=== PATIENT | female | born 1970 ===

== ENCOUNTER 2020-10-10 07:51 | Inpatient (IN) | payer OTHER ==
[~2020-10-10 07:51] MED LIST: Dexamethasone 4 MG/ML SDV ONE; Glycopyrrolate 0.2 MG/ML 5 ML MDV ONE; Lactated Ringers 1,000 ML ONE; Neostigmine Methylsulfate 1 MG/ML 5 ML Syringe ONE; Ondansetron 4 MG/2 ML SDV ONE; Propofol 200 MG/20 ML SDV ONE; Rocuronium 50 MG/5 ML Vial ONE; Succinylcholine 200 MG/10 ML MDV ONE; cefOXitin 2 GM Vial ONE; fentaNYL 250 MCG/5 ML SDV ONE
[2020-10-10] MEDS ORDERED: Acetaminophen 500 MG Tab PO ONE (08:15)
[2020-10-10] MEDS ORDERED: Gabapentin 300 MG Cap PO ONE (08:15)
[2020-10-10] MEDS ORDERED: cefOXitin 2 GM in Sodium Chloride 0.9% 50 ML IV ONE (08:15)
[2020-10-10] MEDS ORDERED: Dextrose 5%-Lactated Ringers 1,000 ML IV SCH (08:15)
[2020-10-10] MEDS ORDERED: Scopolamine 1.5 MG Transdermal Patch TOP SCH (08:15)
[2020-10-10] MEDS ORDERED: Celecoxib 200 MG Cap PO ONE (08:30)
[2020-10-10] MEDS ORDERED: Magnesium Sulfate 3 GM in Sodium Chloride 0.9% 100 ML IV SCH (09:45)
[2020-10-10] MEDS ORDERED: Ketamine 50 MG in Sodium Chloride 0.9% 49.5 ML IV SCH (09:45)
[2020-10-10] MEDS ORDERED: Ketamine 500 MG/5 ML MDV IV SCH (09:45)
[2020-10-10] MEDS: Magnesium Sulfate/Water 2 GM/50 ML BAG IV SCH ×2 (10:36→13:46)
[2020-10-10] MEDS ORDERED: fentaNYL 250 MCG/5 ML SDV ONE (10:44)
[2020-10-10] MEDS ORDERED: hydrOXYzine HCL 100 MG/2 ML SDV IM ONE (12:10)
[2020-10-10] MEDS ORDERED: Cyclobenzaprine 10 MG Tab PO PRN (13:25)
[2020-10-10] MEDS ORDERED: HYDROmorphone 0.5 MG/0.5 ML Syringe IVPUSH PRN (14:00)
[2020-10-10] MEDS ORDERED: Acetaminophen 500 MG Tab PO SCH (14:00)
[2020-10-10] MEDS ORDERED: HYDROmorphone 1 MG/ML Syringe IV PRN (14:00)
[2020-10-10] MEDS ORDERED: Ondansetron 4 MG/2 ML SDV IVPUSH PRN (14:00)
[2020-10-10] MEDS ORDERED: Calcium Gluconate 10% 1 GM/10 ML SDV IVPUSH PRN (14:00)
[2020-10-10] MEDS ORDERED: Metoclopramide 10 MG/2 ML SDV IVPUSH PRN (14:00)
[2020-10-10] MEDS ORDERED: Labetalol 20 MG/4 ML Syringe IVPUSH PRN (14:00)
[2020-10-10] MEDS ORDERED: Acetaminophen 500 MG Tab PO PRN (14:00)
[2020-10-10] MEDS ORDERED: diphenhydrAMINE 50 MG/ML SDV IVPUSH PRN (14:00)
[2020-10-10] MEDS ORDERED: traMADol 50 MG Tab PO PRN (14:00)
[2020-10-10] MEDS: hydrOXYzine HCL 100 MG/2 ML SDV IM PRN (15:32)
[2020-10-10] MEDS ORDERED: MVI, Adult with Vitamin K 10 ML, Thiamine 200 MG, Zinc/Copper/Manganese/Selenium 1 ML i... IV SCH ×4 (16:00)
[2020-10-10] MEDS ORDERED: Pantoprazole 40 MG Vial IVPUSH SCH (16:00)
[2020-10-10] MEDS: cefOXitin 2 GM in Sodium Chloride 0.9% 50 ML IV SCH ×3 (16:14→22:58)
[2020-10-10] MEDS: Heparin Sodium 5,000 Units/ML Vial SUBCUT SCH (17:52)
[2020-10-10] MEDS: Acetaminophen 500 MG Tab PO SCH (17:52)
[2020-10-10] MEDS: oxyCODONE 5 MG Tab PO PRN (18:17)
[2020-10-10] MEDS: Gabapentin 300 MG Cap PO SCH (20:45)
[2020-10-10] MEDS: ClonazePAM 1 MG Tab PO SCH (20:49)
[2020-10-10] MEDS: Dextrose 5%-Lactated Ringers 1,000 ML IV SCH (22:59)
[2020-10-11] MEDS ORDERED: SUMAtriptan 50 MG Tab PO PRN (01:34)
[2020-10-11] MEDS: oxyCODONE 5 MG Tab PO PRN (01:43)
[2020-10-11] MEDS: Acetaminophen 500 MG Tab PO SCH ×3 (01:43→17:45)
[2020-10-11] MEDS ORDERED: Iopamidol 612 MG/ML 50 ML SDV PO STA (03:27)
[2020-10-11] MEDS: cefOXitin 2 GM in Sodium Chloride 0.9% 50 ML IV SCH ×3 (04:51→15:05)
[2020-10-11] MEDS: Dextrose 5%-Lactated Ringers 1,000 ML IV SCH (04:52)
[2020-10-11] MEDS: Heparin Sodium 5,000 Units/ML Vial SUBCUT SCH ×2 (06:00→17:45)
[2020-10-11] MEDS ORDERED: Ondansetron 4 MG Tab.DIS PO PRN (07:21)
[2020-10-11] MEDS ORDERED: Dextrose 5%-Lactated Ringers 1,000 ML IV SCH (07:30)
--- NOTE | 2020-10-11 08:26 | PN ---
DATE OF SERVICE: 10/11/2020 SUBJECTIVE: Manda is postop day #1 following a gastric bypass surgery. Her upper GI this morning was normal. Vital signs have been stable. She has been up, ambulating. Oral intake 990. Urine output 1500. GARY drain put out 70 mL of a serosanguineous drainage. The patient states after surgery, she cannot feel her bladder and has had 2 large incontinent voids. REVIEW OF SYSTEMS: Remainder of review of systems negative for any pertinent positives and negatives. OBJECTIVE: GENERAL: Manda Rey is a pleasant 50-year-old female. She is alert, orientated. Sitting up in the chair. VITAL SIGNS: TPR is 96.5, 76, 18, blood pressure 122/73. HEENT: Negative. NECK: Supple. HEART: Regular rate and rhythm. LUNGS: Clear. ABDOMEN: Dressings dry and intact. Abdominal binder is on and GARY drain as above. EXTREMITIES: Without peripheral edema. ASSESSMENT: 1. Laparoscopic Debbie-en-Y gastric bypass surgery. 2. Liver biopsy. 3. Repair of large paraesophageal hernia. 4. Mediastinal lipoma. Date of procedure: 10/10/2020. POSTOPERATIVE DIAGNOSES: Morbid obesity, hepatomegaly, large paraesophageal diaphragmatic hernia, and mediastinal lipoma. PLAN: 1. Decrease IV rate to 100 mL per hour. 2. Dressing off, may shower. 3. Communication order: Three med cups per hour, 1 every 20 minutes. 4. Atarax 50 mg q.4 hours p.r.n. pain. 5. Energy protocol discussed with the patient. 6. Continue use of incentive spirometer 10 times every hour while awake and ambulate 6 times daily. 7. We will evaluate p.r.n. or in a.m. 8. We will continue to evaluate bladder. Essie Sparrow PA-C /[id number]
[2020-10-11] MEDS: Gabapentin 300 MG Cap PO SCH ×2 (08:28→20:02)
[2020-10-11] MEDS: Celecoxib 200 MG Cap PO SCH ×2 (08:29→20:02)
[2020-10-11] MEDS: FLUoxetine 20 MG Cap PO SCH (08:29)
[2020-10-11] MEDS: SCOPOLAMINE PATCH CHECK TOP SCH (08:30)
[2020-10-11] MEDS: ClonazePAM 1 MG Tab PO SCH ×2 (08:34→20:06)
[2020-10-11] MEDS: hydrOXYzine HCl 25 MG Tab PO PRN ×2 (08:40→13:01)
--- NOTE | 2020-10-11 11:23 | CR ---
UGI [facility] HISTORY: Postbariatric surgery FINDINGS: Patient swallowed water-soluble contrast. Upright views of the abdomen show no evidence of extravasation or obstruction. There is a surgical drain in the left upper quadrant IMPRESSION: Status post bariatric surgery No extravasation or obstruction seen
[2020-10-11] MEDS ORDERED: Pantoprazole 40 MG Delayed-Release Granules 1 Packet PO SCH (16:00)
[2020-10-11] MEDS ORDERED: MVI, Adult with Vitamin K 10 ML, Thiamine 200 MG, Zinc/Copper/Manganese/Selenium 1 ML i... IV SCH ×4 (16:00)
[2020-10-11] MEDS: hydrOXYzine HCL 100 MG/2 ML SDV IM PRN (16:25)
[2020-10-12] MEDS: Acetaminophen 500 MG Tab PO SCH ×2 (02:13→10:09)
[2020-10-12] MEDS: hydrOXYzine HCl 25 MG Tab PO PRN (05:22)
[2020-10-12] MEDS: Heparin Sodium 5,000 Units/ML Vial SUBCUT SCH (05:23)
[2020-10-12] MEDS ORDERED: Calcium Carbonate 500 MG Tab.Chew PO PRN (08:56)
[2020-10-12] MEDS ORDERED: Pantoprazole 40 MG Delayed-Release Granules 1 Packet PO SCH (09:00)
[2020-10-12] MEDS ORDERED: Cyanocobalamin (Vitamin B12) 1,000 MCG/ML SDV IM ONE (09:00)
[2020-10-12] MEDS: FLUoxetine 20 MG Cap PO SCH (09:01)
[2020-10-12] MEDS: Celecoxib 200 MG Cap PO SCH (09:02)
[2020-10-12] MEDS: Gabapentin 300 MG Cap PO SCH (09:02)
[2020-10-12] MEDS: SCOPOLAMINE PATCH CHECK TOP SCH (09:03)
[2020-10-12] MEDS: ClonazePAM 1 MG Tab PO SCH (09:14)
--- NOTE | 2020-10-12 10:22 | DISCH ---
ADMISSION DIAGNOSES: 1. Morbid obesity. 2. Body mass index 50. 3. Gastroesophageal reflux disease refractory to medical management. 4. Post-traumatic stress disorder. 5. Hypothyroidism. 6. Osteoarthritis. 7. Anxiety. DISCHARGE DIAGNOSES: Laparoscopic Debbie-en-Y gastric bypass surgery, liver biopsy, repair of large paraesophageal hernia, and mediastinal lipoma for morbid obesity, hepatomegaly, large paraesophageal diaphragmatic hernia, and mediastinal lipoma. Date of procedure: 10/10/2020. Surgeon: Kevin Ricketts MD. HISTORY: Manda Rey is a 50-year-old female with longstanding history of morbid obesity and increasing comorbidities. After preoperative evaluation and discussion of possible risks and possible complications, she wished to proceed with surgical procedure. HOSPITAL COURSE: Manda had her surgery on 10/10/2020. She had no operative complications. On postoperative day #1, her upper GI was normal. She was started on step 2 gastric bypass diet with no cereal. On postop day #2, vital signs were stable, oral intake adequate, and she received dietary instructions from a dietitian, and she received a vitamin B12 1000 mcg IM injection. She was able to be discharged to home in stable condition. PHYSICAL EXAMINATION: GENERAL: Manda Rey is a pleasant 50-year-old female. VITAL SIGNS: Height 5 feet 1 inch, weight is 266 pounds 9.6 ounces, BMI is 50.4. TPR 96.1, 54, 16, blood pressure 118/75. HEENT: Negative. NECK: Supple. HEART: Regular rate and rhythm. LUNGS: Clear. ABDOMEN: Trocar incisions look good. Sutures intact. GARY drain will be removed prior to discharge. Abdominal binder has been on. EXTREMITIES: Without peripheral edema. DISPOSITION: Discharged to home. CONDITION: Stable and improving. FOLLOWUP: Appointment with Essie Sparrow PA-C, on 10/19/2020 at 10 a.m. HOME PRESCRIPTIONS: 1. Hydroxyzine/Atarax 50 mg q.4 hours p.r.n. pain, #30. 2. Zofran ODT 4 mg every 4 hours p.r.n. nausea, #30. 3. Celebrex 200 mg p.o. b.i.d. for 2 weeks. 4. Continue Protonix 40 mg daily as long as she takes the Celebrex. 5. Synthroid 75 mcg p.o. daily. 6. Neurontin 600 mg p.o. b.i.d. 7. Fluoxetine 40 mg p.o. daily. 8. Clonazepam 2 mg p.o. b.i.d. 9. Imitrex 50 mg p.o. daily p.r.n. migraine headache. DIET: Step 2 gastric bypass diet with no cereal until 10/24/2020, 65 g of protein in 64 ounces of water. ACTIVITY: No lifting over 10 pounds for 2 weeks. OTHER ACTIVITY: Walk 6 times daily inside your home. Driving: Do not drive for 1 week. Shower/bathing: May shower. Keep operative site clean and dry. DISCHARGE INSTRUCTIONS: Wear abdominal binder for 2 weeks and then as tolerated. Notify provider if any fever, increased pain, swelling, redness, drainage, nausea, vomiting. SPECIAL INSTRUCTION: 1. Use incentive spirometer 10 times every hour while awake for 1 week. 2. Right down your protein and liquid intake each day and bring to clinic appointment. 3. Walk for about 3 to 4 minutes for every hour you are riding in the car. /[id number]
--- NOTE | 2020-10-18 13:57 | OR ---
DATE OF PROCEDURE: 10/10/2020 SURGEON: Kevin Ricketts MD PREOPERATIVE DIAGNOSIS: Morbid obesity. POSTOPERATIVE DIAGNOSES: 1. Morbid obesity. 2. Marked hepatomegaly. 3. Large paraesophageal diaphragmatic hernia. 4. Mediastinal lipoma. PROCEDURES PERFORMED: 1. Laparoscopic Debbie-en-Y gastric bypass with long limb gastroenterostomy (54054). 2. Chu-Cut needle liver biopsy (97560). 3. Repair of large paraesophageal diaphragmatic hernia (51444). 4. Excision of mediastinal lipoma (83256). ANESTHESIA: General. FREELANCE DISPLAYER: Andrews Founatin PA-C INDICATIONS FOR PROCEDURE: A 50-year-old female presenting with longstanding morbid obesity and increasingly significant comorbidities. After preoperative evaluation and discussion, the patient wished to proceed with a gastric bypass procedure. Potential risks of the procedure including bleeding, infection, leaks from various GI tract closures, problems with bowel obstruction over time, as well as the possibility of cardiopulmonary, septic, or hemorrhagic complications leading to were discussed, and the patient wishes to proceed. DETAILS OF PROCEDURE: The patient was taken to the operating room, and after general endotracheal anesthesia was induced, she was placed in a lithotomy position and the abdomen prepped and draped. 15 cm inferior and 5 cm left of the xiphoid process, a transverse incision was made and the peritoneal cavity entered under direct vision with an Optiview trocar and inflated to 15 mmHg pressure of CO2. The laparoscope was reinserted. No underlying trocar insertion site injuries were seen. Bilateral transversus abdominis plane blocks were then placed, and 5 additional trocars were placed across the upper and mid abdomen. The liver was noted to be markedly enlarged and fatty infiltrated. Chu-Cut needle biopsies were obtained from the left lobe of the liver. Minimal bleeding from the biopsy sites was controlled with electrocautery. The omentum was then divided in the midline up to the level of the transverse colon. This allowed identification of the small bowel to the ligament of Treitz. The small bowel was then traced out 150 cm distal to that point and was divided transversely with the ADDIE stapler, and the small bowel was then traced out an additional 175 cm where the [id number] enteroenterostomy was accomplished with internal firing of the Endo-ADDIE 60 mm stapler. Common opening was closed transversely with the same stapler, the angles anastomosed, and mesenteric defect reapproximated with some 0 Ethibond stitch along with fibrin sealant. The divided end of the Debbie limb was from the mesentery for a few centimeters which allowed an antecolic position of the Debbie limb up to the level of the gastroesophageal junction without tension. Prior to that, the underlying mesentery at the jejunojejunostomy was closed with some 0 Ethibond sutures as well. At this point, the liver was retracted anteriorly. The patient was noted to have a fairly large paraesophageal diaphragmatic hernia. The latter was reduced and the peritoneum overlying incised and reflected downward. During the course of the dissection, a mediastinal lipoma was encountered, and to facilitate a more adequate crural repair, this was removed, and an anterior crural repair was accomplished with 0 Ethibond sutures reinforced with PTFE pledgets. The gastrointestinal catheter was then inflated to 15 mL with air and pulled up against the EG junction. The gastric wall over the apex of the balloon was then marked with electrocautery and the balloon catheter deflated and withdrawn. The lesser omental tissue adjacent to the gastric cardia was then incised, allowing dissection behind the stomach at that level. The pouch formation was initiated with a transverse firing of the ADDIE stapler to the level of the cauterized marcos at the gastric cardia and completed with additional firings of ADDIE yanni up to and through the angle of His. Upon completion of the pouch, both staple lines were noted to be intact. The anvil of a 25 mm EEA stapler was attached to a [place] sump-type tube. The latter was brought down through the mouth and taken out through a small opening in the gastric pouch, and this allowed the anvil likewise to be pulled down within the gastric pouch. The divided end of the Debbie limb was then opened. The main body of the EEA stapler passed several centimeters into the lumen of the small bowel, brought up the anvil, and united with it, thus creating the gastrojejunostomy. Upon removal of the stapler, double donuts of mucosa were noted within it. The small bowel was closed off with a vascular staple line. Gastrojejunostomy was reinforced with some 3-0 Vicryl seromuscular stitch along with fibrin sealant. A leak test was accomplished with injection of 120 mL of air in the gastric pouch while it was submerged with an antibiotic-containing saline solution. No leaks were identified. A single Thanh-Zazueta drain was taken out through the left lateral trocar site and positioned adjacent to the gastrojejunostomy, and from there, up into the splenic fossa. The trocars were then sequentially removed and the peritoneal cavity deflated. The incisions were closed with some 4-0 Vicryl skin stitch which was also used to fix the drain. The patient was taken to the recovery room in satisfactory condition. Physician school health assistant, Essie Sparrow, played an essential role in assisting in this case, helping to position the patient, retract structures as needed, as well as suturing and cutting sutures when indicated. Her presence improved the patient's safety and decreased operative time. Kevin Ricketts MD /[id number]
== END 2020-10-12 10:26 | disposition home or self-care (01) | DRG 621 ==
LOC: JP.SDS 07:51 → JP.MS 07:51 → EDSTATUS 10:15
PROVIDERS: ADMIT Surgery; ATTEND Surgery
PROC: 0D164ZA Bypass Stomach to Jejunum, Percutaneous Endoscopic Approach (ICD-10-PCS; principal; 2020-10-10)
PROC: 0FB24ZX Excision of Left Lobe Liver, Percutaneous Endoscopic Approach, Diagnostic (ICD-10-PCS; 2020-10-10)
PROC: 0BQT4ZZ Repair Diaphragm, Percutaneous Endoscopic Approach (ICD-10-PCS; 2020-10-10)
PROC: 0JB63ZZ Excision of Chest Subcutaneous Tissue and Fascia, Percutaneous Approach (ICD-10-PCS; 2020-10-10)
DX: E66.01 Morbid (severe) obesity due to excess calories (principal); Z68.43 Body mass index [BMI] 50.0-59.9, adult; K21.9 Gastro-esophageal reflux disease without esophagitis; F43.10 Post-traumatic stress disorder, unspecified; E03.9 Hypothyroidism, unspecified; M19.90 Unspecified osteoarthritis, unspecified site; F41.9 Anxiety disorder, unspecified; K44.9 Diaphragmatic hernia without obstruction or gangrene; D17.1 Benign lipomatous neoplasm of skin and subcutaneous tissue of trunk; R16.0 Hepatomegaly, not elsewhere classified; E28.2 Polycystic ovarian syndrome; F31.9 Bipolar disorder, unspecified; M25.561 Pain in right knee; G43.909 Migraine, unspecified, not intractable, without status migrainosus; Z90.49 Acquired absence of other specified parts of digestive tract; Z79.890 Hormone replacement therapy; Z79.899 Other long term (current) drug therapy
CPT/HCPCS: 36415; 74240; 74240-26; 80053; 81025; 83735; 84100; 85027; 86850; 86900; 86901; 88304; 88307; 88313; 94762; A9270-GY; C9113; J0171; J0330; J0694; J1100; J1170; J1644; J2405; J2704; J2710; J2795; J3010; J3410; J3411; J3420; J3475; J3490; J7120; J7121; Q9967